=== PATIENT | female | born 1975 | race Caucasian/White ===

== ENCOUNTER 2024-12-15 08:59 | Day surgery (SDC) | payer BC ==
[~2024-12-15] VITALS: Ht 165.1 cm; Wt 85.5 kg
[~2024-12-15 08:59] MED LIST: Lactated Ringer's 1,000 ML IV ONE; propofoL 50 ML IV ONE
[2024-12-15] MEDS ORDERED: OMEPRAZOLE MAGN20 M1 (09:29)
[2024-12-15] MEDS ORDERED: ESTRADIOL1 M1 (09:29)
[2024-12-15] MEDS ORDERED: IMITREX100 MG (09:29)
[2024-12-15] MEDS ORDERED: TOPI100 (09:29)
[2024-12-15] MEDS ORDERED: PROG100 (09:30)
[2024-12-15] MEDS ORDERED: LIOT5 (09:30)
[2024-12-15] MEDS ORDERED: SYNTHROID150 MC2 (09:31)
[2024-12-15] MEDS ORDERED: THERA-D2000 UNIT (09:32)
[2024-12-15] MEDS ORDERED: Lactated Ringer's 1,000 ML IV ONE (10:19)
[2024-12-15] MEDS ORDERED: propofoL 50 ML IV ONE (10:58)
[2024-12-15 11:48] VITALS: BP 108/75
== END 2024-12-15 11:45 | disposition home or self-care (01) ==
LOC: ORSCSDS 08:59
PROVIDERS: Internal Medicine Gastroenterology
PROC: 0DJD8ZZ Inspection of Lower Intestinal Tract, Via Natural or Artificial Opening Endoscopic (ICD-10-PCS; principal; 2024-12-15 10:30)
PROC: 0DJ08ZZ Inspection of Upper Intestinal Tract, Via Natural or Artificial Opening Endoscopic (ICD-10-PCS; principal; 2024-12-15 10:30)
DX: K21.9 Gastro-esophageal reflux disease without esophagitis (principal); Z12.11 Encounter for screening for malignant neoplasm of colon; K57.30 Diverticulosis of large intestine without perforation or abscess without bleeding; Z80.0 Family history of malignant neoplasm of digestive organs; Z86.0100 Personal history of colon polyps, unspecified; E03.9 Hypothyroidism, unspecified; Z79.899 Other long term (current) drug therapy
CPT/HCPCS: J2704; J7120